=== PATIENT | male | born 1975 | race Caucasian/White ===

== ENCOUNTER 2019-04-06 22:48 | Inpatient (IN) | payer MEDICAID ==
[~2019-04-06] VITALS: Ht 167.6 cm; Wt 93.0 kg
[2019-04-06 22:55] VITALS: BP 130/85
--- NOTE | 2019-04-06 22:59 | NUR ---
TO LOBBY A/W BED , EKG DONE ERMD NOTED
--- NOTE | 2019-04-07 03:08 | NUR ---
PT AMBULATED TO ER BED 04
--- NOTE | 2019-04-07 03:14 | NUR ---
44/M PRESENTS WITH , C/O L SIDED CHEST PAIN, RADIATING TO L ARM AND L JAW, X3 DAYS. DENIES FEVER, COUGH, N/V. PT AWAKE AND ALERT, SKIN NORMAL WARM AND DRY, RR EVEN AND UNLABORED. LUNG SOUNDS CLEAR BL. HR 78 EVEN AND REGULAR, NSR ON MONITOR. DENIES MED HX OR RX. OTC TYLENOL AND MOTRIN WITH RELIEF.
--- NOTE | 2019-04-07 03:40 | NUR ---
DR BARNEY AT BEDSIDE FOR MSE
[2019-04-07 04:09] LABS: BASOPHILS # (AUTO) 0.1 K/uL (0.00-0.22); BASOPHILS % (AUTO) 0.6 % (0.0-2.0); EOSINOPHILS # (AUTO) 0.4 K/uL (0-0.4); EOSINOPHILS % (AUTO) 4.3 % (0.0-4.0); HEMATOCRIT 44.6 % (36-52); HEMOGLOBIN 15.2 g/dL (12.0-18.0); LYMPHOCYTES # (AUTO) 4.1 K/uL (2.0-11.5); LYMPHOCYTES % (AUTO) 50.1 % (20.5-51.1); MEAN CORPUSCULAR HEMOGLOBIN 30 pg (27-31); MEAN CORPUSCULAR HGB CONC 34 g/dL (33-37); MEAN CORPUSCULAR VOLUME 87.8 fL (80-94); MONOCYTES # (AUTO) 0.6 K/uL (0.8-1.0); MONOCYTES % (AUTO) 7.2 % (1.7-9.3); NEUTROPHILS # (AUTO) 3.1 K/uL (1.8-7.7); NEUTROPHILS % (AUTO) 37.8 % (42.2-75.2); PLATELET COUNT (AUTO) 181 K/uL (140-450); RED BLOOD CELL COUNT(AUTO) 5.08 MIL/uL (4.20-6.10); WHITE BLOOD COUNT (AUTO) 8.2 K/uL (4.8-10.8)
[2019-04-07 04:29] LABS: ANION GAP 14.8 (8-16); CARBON DIOXIDE 27.9 mmol/L (21-32); CREATININE 0.8 mg/dL (0.7-1.3); POTASSIUM 4.7 mmol/L (3.5-5.1)
[2019-04-07 04:34] LABS: ALBUMIN 4.3 g/dL (3.4-5.0); TOTAL BILIRUBIN 0.5 mg/dL (0.0-1.0)
--- NOTE | 2019-04-07 05:54 | NUR ---
PT LAYING IN BED, AT BEDSIDE. VSS. DENIES ANY PAIN AT THIS TIME. ALL NEEDS MET.
[2019-04-07] MEDS ORDERED: FAMOTIDINE 20 MG/2 ML VIAL IV PRN (05:55)
[2019-04-07] MEDS ORDERED: ONDANSETRON 4 MG/2 ML VIAL IM/IVP PRN (05:55)
[2019-04-07] MEDS ORDERED: DOCUSATE SODIUM 100 MG GELCAP PO PRN (05:55)
[2019-04-07] MEDS ORDERED: MORPHINE SULFATE 2 MG/ML SYR IVP PRN (05:55)
[2019-04-07] MEDS ORDERED: ACETAMINOPHEN 325 MG TAB PO PRN (05:55)
[2019-04-07] MEDS ORDERED: LORazepam 2 MG/ML VIAL IM/IVP PRN (05:55)
--- NOTE | 2019-04-07 07:15 | NUR ---
Patient will be admitted to care of DR CHAVES. Admited to TELE. Will go to room 106B. Belongings list completed. Report to SHADE LEUNG.
[2019-04-07 07:30] VITALS: BP 131/87
--- NOTE | 2019-04-07 07:30 | NUR ---
RECEIVED REPORT FROM SHOELACE TIPPING MACHINE OPERATORSHADE LEUNG AT BEDSIDE FOR CONTINUITY OF CARE. PATIENT ARRIVED FROM ER. AMBULATORY, AOX4, MOZAMBICAN SPEAKING. NO S/S OF DISTRESS OR SOB ON ROOM AIR. PT C/O TOLERABLE PAIN ON LEFT ARM. WILL ASSESS AND MEDICATE. UPDATED BOARD. UPDATED PATIENT WITH PLAN OF CARE. ORIENTED PATIENT TO ROOM, BATHROOM, TV, AND CALL LIGHT, SAFETY PRECAUTIONS IN PLACE, CALL LIGHT WITHIN REACH, WILL CONTINUE TO MONITOR PATIENT.
[2019-04-07 08:41] LABS: PROTHROMBIN TIME 9.7 secs (10.8-13.4)
[2019-04-07 08:47] LABS: ALBUMIN 4.3 g/dL (3.4-5.0); CHOL/HDL RATIO 5.2 (1-4.5); MAGNESIUM 2.1 mg/dL (1.8-2.4); PHOSPHORUS 3.4 mg/dL (2.5-4.9)
--- NOTE | 2019-04-07 08:50 | NUR ---
DR RODRIGUEZ IN TO SEE THE PATIENT. WILL WAIT FOR HER ORDERS.
[2019-04-07] MEDS ORDERED: METOPROLOL 25 MG TAB PO SCH (09:30)
[2019-04-07] MEDS ORDERED: LISINOPRIL 5 MG TAB PO SCH (09:30)
[2019-04-07] MEDS: HYDROcodone/APAP 7.5/325 MG 1 TAB PO PRN ×2 (09:34→19:49)
--- NOTE | 2019-04-07 09:37 | NUR ---
ORDERED MEDICATIONS GIVEN. PT C/O PAIN ON LEFT ARM, REQUESTED FOR PRN PAIN MEDICATION. PAIN MEDICATION GIVEN. PATIENT TOLERATED THEM WELL. NO COMPLAINTS AT THIS TIME. ASSESSMENT COMPLETED. SECURITY ATTENDANT PHONE USED, #[phone] SECURITY ATTENDANT MILY. SAFETY PRECAUTIONS IN PLACE, CALL LIGHT WITHIN REACH, WILL CONTINUE TO MONITOR PATIENT.
[2019-04-07] MEDS ORDERED: KETOROLAC 30 MG/ML VIAL IVP SCH (09:45)
[2019-04-07 09:46] LABS: FREE T4 (FREE THYROXINE) 0.86 ng/dL (0.76-1.46); THYROID STIMULATING HORMONE 3.29 uIU/mL (0.34-3.74)
--- NOTE | 2019-04-07 10:30 | NUR ---
ONE TIME DOSE OF TORADOL NOT GIVEN. PATIENT DENIES PAIN AT THE MOMENT D/T PRN NORCO GIVEN PRIOR. WILL CONTINUE TO MONITOR PATIENT.
[2019-04-07 12:00] VITALS: BP 131/87
--- NOTE | 2019-04-07 12:20 | NUR ---
PATIENT SITTING UP IN BED EATING LUNCH, VS WNL. NO COMPLAINTS AT THIS TIME, DENIES PAIN ON LEFT ARM. WILL CONTINUE TO MONITOR PATIENT.
--- NOTE | 2019-04-07 14:12 | NUR ---
PATIENT RESTING IN BED, VENUS AT BEDSIDE, NO COMPLAINTS AT THIS TIME. WILL CONTINUE TO MONITOR PATIENT.
[2019-04-07 16:00] VITALS: BP 135/80
--- NOTE | 2019-04-07 16:07 | NUR ---
PATIENT RESTING IN BED, VS WNL. NO COMPLAINTS AT THIS TIME. PATIENT DENIES PAIN. WILL CONTINUE TO MONITOR PATIENT.
--- NOTE | 2019-04-07 18:10 | NUR ---
PATIENT SITTING IN BED EATING DINNER, AT SIDE. NO COMPLAINTS AT THIS TIME. PATIENT DENIES PAIN. INFORM PATIENT OF NEED FOR URINE SAMPLE. PATIENT AND VERBALIZED UNDERSTANDING. WILL CONTINUE TO MONITOR PATIENT AND ENDORSE TO INDUSTRIAL HYGIENE MANAGER RN.
--- NOTE | 2019-04-07 19:17 | NUR ---
REPORT GIVEN TO HOUSEKEEPER HOME RN VONNIE AT BEDSIDE FOR CONTINUITY OF CARE. PATIENT IN STABLE CONDITION.
--- NOTE | 2019-04-07 19:20 | NUR ---
RECEIVED PT SLEEPING, EASILY AROUSABLE, VITAL SIGNS STABLE, COMPLAINING OF LEFT ARM PAIN, DENIES CHEST PAIN, NO SOB NOTED, WILL MEDICATE PRN, PLAN OF CARE DISCUSSED, SAFETY MEASURES IN PLACE, CALL LIGHT WITHIN REACH.
[2019-04-07 20:00] VITALS: BP 131/72
[2019-04-07 20:22] LABS: APPEARANCE,URINE CLEAR (CLEAR); BILIRUBIN,URINE NEGATIVE (NEGATIVE); BLOOD, URINE NEGATIVE (NEGATIVE); COLOR,URINE YELLOW (YELLOW); LEUKOCYTE ESTERASE ,URINE NEGATIVE (NEGATIVE); NITRITE, URINE NEGATIVE (NEGATIVE); UGLUCOSE NEGATIVE (NEGATIVE)
[2019-04-07] MEDS: METOPROLOL 25 MG TAB PO SCH (20:49)
--- NOTE | 2019-04-07 21:00 | NUR ---
DUE MEDS ADMINISTERED WITH EDUCATION PROVIDED, TOLERATED WELL, ALL NEEDS ATTENDED.
[2019-04-07 22:26] LABS: BARBITURATE, URINE NEG. ng/ml (NEG <=200); BENZODIAZEPINE, URINE NEG. ng/mL (NEG <=200); CANNABINOID, URINE NEG. ng/mL (NEG <=50); COCAINE, URINE NEG. ng/mL (NEG <=300); OPIATE, URINE NEG. ng/mL (NEG <=2000); PHENCYCLIDINE SCREEN,URINE NEG. ng/mL (NEG <=25)
[2019-04-08] VITALS: BP 126/78
--- NOTE | 2019-04-08 | NUR ---
PT SLEEPING, EASILY AROUSABLE TO VERBAL STIMULI, VITAL SIGNS STABLE, DENIES ANY PAIN OR SOB, CONTINUE TO MONITOR CLOSELY.
[2019-04-08 04:00] VITALS: BP 126/79
--- NOTE | 2019-04-08 04:00 | NUR ---
PT SLEEPING, EASILY AROUSABLE, VITAL SIGNS STABLE, DENIES ANY PAIN OR SOB, CONTINUE TO MONITOR CLOSELY.
--- NOTE | 2019-04-08 05:40 | NUR ---
PT AWAKE, TOLERABLE LEFT ARM PAIN AT THIS TIME, WILL CALL IF PAIN GET WORST, MONITORED CLOSELY.
--- NOTE | 2019-04-08 07:10 | NUR ---
PT AWAKE, NO DISTRESS NOTED, BEDSIDE REPORT GIVEN TO SHADE GERARD FOR CONTINUITY OF CARE.
[2019-04-08 07:14] LABS: BASOPHILS # (AUTO) 0.1 K/uL (0.00-0.22); BASOPHILS % (AUTO) 0.9 % (0.0-2.0); EOSINOPHILS # (AUTO) 0.3 K/uL (0-0.4); EOSINOPHILS % (AUTO) 3.7 % (0.0-4.0); HEMATOCRIT 46.9 % (36-52); HEMOGLOBIN 15.9 g/dL (12.0-18.0); LYMPHOCYTES % (AUTO) 41.9 % (20.5-51.1); MEAN CORPUSCULAR HEMOGLOBIN 30 pg (27-31); MEAN CORPUSCULAR HGB CONC 34 g/dL (33-37); MEAN CORPUSCULAR VOLUME 88.6 fL (80-94); MONOCYTES # (AUTO) 0.6 K/uL (0.8-1.0); MONOCYTES % (AUTO) 7.7 % (1.7-9.3); NEUTROPHILS # (AUTO) 3.3 K/uL (1.8-7.7); NEUTROPHILS % (AUTO) 45.8 % (42.2-75.2); PLATELET COUNT (AUTO) 186 K/uL (140-450); RED BLOOD CELL COUNT(AUTO) 5.29 MIL/uL (4.20-6.10); RED CELL DISTRIBUTION WIDTH 12.9 % (11.6-13.7); WHITE BLOOD COUNT (AUTO) 7.2 K/uL (4.8-10.8)
--- NOTE | 2019-04-08 07:28 | NUR ---
RECEIVED HANDOFF REPORT FROM EDUCATION RESEARCH ANALYST NURSE PT IS AWAKE AND APPEARS STABLE AND IN NO APPARENT DISTRESS
[2019-04-08 08:00] VITALS: BP 122/80
[2019-04-08 08:06] LABS: ANION GAP 14.9 (8-16); CARBON DIOXIDE 27.5 mmol/L (21-32); CREATININE 0.8 mg/dL (0.7-1.3); POTASSIUM 4.4 mmol/L (3.5-5.1)
[2019-04-08 08:13] LABS: MAGNESIUM 2.1 mg/dL (1.8-2.4); PHOSPHORUS 3.2 mg/dL (2.5-4.9)
[2019-04-08] MEDS: METOPROLOL 25 MG TAB PO SCH (08:26)
[2019-04-08] MEDS ORDERED: ECOTRIN 81 MG TABEC PO SCH (09:00)
[2019-04-08] MEDS ORDERED: LISINOPRIL 5 MG TAB PO SCH (09:00)
[2019-04-08] MEDS ORDERED: MELO-174 PO (09:20)
--- NOTE | 2019-04-08 09:30 | NUR ---
UPDATED PT ON PLAN FOR DISCHARGE PT IS OK WITH THE PLAN AND WILL CALL HIS [facility] TO COME PICK HIM UP
--- NOTE | 2019-04-08 09:41 | NUR ---
PATIENT HAS BEEN SCREENED AND CATEGORIZED LOW NUTRITION RISK. PATIENT WILL BE SEEN WITHIN 7 DAYS OF ADMISSION. 04/13/[address]
[2019-04-08 10:34] VITALS: BP 122/80
--- NOTE | 2019-04-08 11:45 | NUR ---
REVIEWED DISCHARGE PAPER WORK WITH THE PATIENT USING BLUE PASTE UP COPY CAMERA OPERATOR PHONE. REVIEWED ALL PAPERWORK ANSWERED ALL THE PATIENTS QUESTIONS AND PROVIDED HIM WITH HIS DISCHARGE PACKET. INFORMED PT TO FOLLOW UP WITH PCP WITHIN 3 DAYS. GAVE THE PT HIS PAPER PRESCRIPTION AND TOLD HIM HE CAN HAVE HIS PRESCRIPTION FILLED AT ANY PHARMACY. REMOVED TELE MONITOR AND IV. IV TIP INTACT. PT APPEARS STABLE AND IN NO APPARENT DISTRESS. PT AMBULATED OFF THE UNIT WITH HIS . PT LEFT WITH ALL PERSONAL BELONGINGS.
[2019-04-09 06:08] LABS: HEPATITIS A ANTIBODY IGM Negative (Negative); HEPATITIS B CORE AB TOTAL Negative (Negative); HEPATITIS B SURFACE ANTIBODY Non Reactive (.); HEPATITIS B SURFACE ANTIGEN Negative (Negative)
== END 2019-04-08 11:35 | disposition home or self-care (01) | DRG 203 ==
LOC: MED 22:48 → MTU 04-07 05:54
PROVIDERS: ADMIT General Practice; ATTEND General Practice
DX: M94.0 Chondrocostal junction syndrome [Tietze] (principal); I10 Essential (primary) hypertension; R74.0 Nonspecific elevation of levels of transaminase and lactic acid dehydrogenase [LDH]
CPT/HCPCS: 36415; 71045; 76705; 80048; 80053; 80305; 81003; 82040; 82150; 83036; 83690; 83735; 83880; 84100; 84134; 84439; 84443; 84484; 85025; 85610; 85730; 86704; 86706; 86708; 86709; 86803; 87081; 87340; 93005; 99285; J1644; Q0092